=== PATIENT | female | born 1975 | race Caucasian/White ===

== ENCOUNTER 2017-01-23 05:35 | Inpatient (IN) | payer OTHER ==
--- NOTE | 2017-01-22 18:19 | GHP ---
[f rep st] PREOP HISTORY AND PHYSICAL Amended report PLANNED PROCEDURE: Total abdominal hysterectomy, possible supracervical hysterectomy with bilateral salpingectomy. INDICATIONS: Symptomatic fibroid uterus. The patient is a 41-year-old, 1, para 0-0-1-0, who has a longstanding history of known fibroid uterus. The patient has not really had any issues with that until recently. She has been in a new relationship, and is planning on getting . She did conceive her 1st in September of 2016. Unfortunately, that resulted in a miscarriage and she had a spontaneous . During that , her fibroid substantially increased in size, and never decreased following the miscarriage. She saw Dr. Sneed at [facility], to discuss myomectomies. He advised that the fibroids are so big that she would likely not have any uterus left after myomectomy, and would not be a candidate for . Since the miscarriage, the patient has had constant bleeding and significant pelvic pressure. Her uterus is up to her fundus, and observed obscures her entire pelvis. The patient is getting in 2 weeks, and normally travels extensively for work. Because she will have time after the wedding and her [place] honeymoon, and now, she is hoping to have this procedure done as soon as possible as she cannot travel internationally while recovering. We had an extensive discussion about the surgery, anticipation and expectations for recovery time, risks and benefits of surgery in general. Patient is electing to proceed with a total abdominal hysterectomy with bilateral salpingectomy. Risks and benefits have extensively been reviewed with the patient, and the patient has been properly consented. MEDICAL HISTORY: Significant for symptomatic fibroid uterus. A history of migraines. MEDICATIONS: Oral contraceptives. SURGICAL HISTORY: Back surgery. ALLERGIES: NO KNOWN DRUG ALLERGIES. SOCIAL HISTORY: Patient is engaged. She is going to get at the end of the month. She denies tobacco or drug use. She does drink socially. FAMILY MEDICAL HISTORY: Significant for her father with non-Hodgkin lymphoma and melanoma. Her mother also had skin cancer. POULTRY PROCESSOR HISTORY: Menarche age 13. Periods every 28 days, lasting 4 days. She is a 1, para 0-0-1-0. She had a spontaneous in November of 2016. The patient does have a remote history of abnormal Pap smears, but no procedures done on her cervix. She denies any history of any sexually transmitted diseases. PHYSICAL EXAMINATION: VITAL SIGNS: Stable. GENERAL APPEARANCE: She is alert and oriented x3. HEART: Rate is regular. LUNGS: Clear to auscultation bilaterally. ABDOMEN: Soft, but her uterus is up to her fundus. EXTREMITIES: Reveal no calf tenderness or edema. PELVIC: Reveals a non mobile uterus which extends up to her umbilicus and obliterates her pelvis. I am not able to appreciate any adnexal masses due to the size of her uterus. LABS: WBC 14.42 HCT 22.6 Platelets 677 IMAGING: An MRI was performed, which showed a uterus measuring 18.5 x 10.8 x 18.6 cm. She has innumerable fibroids; however, the dominant fibroids are an 8.8 cm intramural fibroid at the right uterine fundus, a 6.7 cm fibroid at the anterior portion of the fundus, a 4.4 cm subserosal fibroid in the left uterine body, a 1.3 cm submucosal fibroid in the uterine body. She does have a simple cyst on the left ovary versus hemorrhagic cyst versus endometrioma. ASSESSMENT AND PLAN: A 41-year-old, 1, para 0-0-1-0, with a symptomatic fibroid uterus. After extensive discussions about management options with the patient, despite not having any children, she is aware that it is unlikely that she will have a successful , so she wishes to proceed with a total abdominal hysterectomy with bilateral salpingectomy. Preoperative testing revealed significant anemia, elevated white blood cell count, and elevated platelets. Long discussion was had about delaying the surgery to increase her HCT. Patient is in significant discomfort and is agreeable to having a transfusion. Discussed with anesthesia and will have patient typed and crossed for 2 units before going back for surgery. The possibility of needing to perform a supracervical hysterectomy was discussed extensively with the patient. The patient has been properly consented, and we will proceed with surgery as planned. /[id number]/MODL Add acc#, 01/22/17, jerica ARGUELLO
[2017-01-23] MEDS ORDERED: ceFAZolin 2 GM/DEXTROSE 100 ML IV ONE (06:00)
[2017-01-23] MEDS ORDERED: LIDOCAINE 1% 2 ML INJ ONE (06:18)
[2017-01-23] MEDS ORDERED: BUPIVACAINE/EPI 0.5% 30 ML SDV ONE (06:45)
[2017-01-23] MEDS ORDERED: SURGIFLO MATRIX KIT WITH THROMBIN TP ONE (07:18)
[2017-01-23] MEDS ORDERED: LIDOCAINE 1% 5 ML SDV ID PRN (07:18)
[2017-01-23] MEDS ORDERED: LR 1,000 ML IV ONE (07:18)
[2017-01-23] MEDS ORDERED: morphINE PF 5 MG/10 ML INJ ONE (07:46)
[2017-01-23] MEDS ORDERED: PROPOFOL/EMULSION 500 MG/50 ML BOTTLE IV ONE (07:47)
[2017-01-23] MEDS ORDERED: ALBUMIN 5% 250 ML BOTTLE IV ONE (07:48)
[2017-01-23] MEDS ORDERED: fentaNYL 250 MCG/5 ML INJ ONE (07:48)
[2017-01-23] MEDS ORDERED: ROCURONIUM 50 MG/5 ML VIAL ONE (07:49)
[2017-01-23] MEDS ORDERED: LIDOCAINE 2% 5 ML SDV ONE (07:49)
[2017-01-23] MEDS ORDERED: ONDANSETRON 4 MG/2 ML VIAL ONE (07:49)
[2017-01-23] MEDS ORDERED: epHEDrine SULFATE 10 MG/ML SYR ONE (07:49)
[2017-01-23] MEDS ORDERED: DEXAMETHASONE 4 MG/ML VIAL ONE (07:49)
[2017-01-23] MEDS ORDERED: MIDAZOLAM 2 MG/2 ML VIAL ONE (07:50)
[2017-01-23] MEDS ORDERED: PHENYLEPHRINE HCL 100 MCG/ML SYR ONE (08:23)
[2017-01-23] MEDS ORDERED: SUGAMMADEX SODIUM 200 MG/2 ML VIAL IVP ONE (10:13)
--- NOTE | 2017-01-23 10:37 | POSTOPPROG ---
Post Op Note Date of Operation: 01/23/17 Surgeon: Felisa Sandoval Citizenship Teacher: mir vaca Anesthesiologist: victoria castorena Anesthesia: GET(General Endotracheal), Spinal Pre-op Diagnosis: symptomatic fibroid uterus Post-op Diagnosis: same Procedure: total abdominal hysterectomy with bilateral salpingectomy Inf/Abcess present in the surg proc area at time of surgery?: No EBL: 100-500 Specimen(s): uterus, cervix, bilateral fallopian tubes
[2017-01-23] MEDS ORDERED: PROMETHAZINE HCL 25 MG/ML INJ ONE (10:39)
[2017-01-23] MEDS ORDERED: KETOROLAC 30 MG/1 ML SDV IVP PRN (10:40)
[2017-01-23] MEDS ORDERED: ONDANSETRON 4 MG/2 ML VIAL IVP PRN (10:40)
[2017-01-23] MEDS ORDERED: HYDROmorphONE/DILAUDID 6 MG/30 ML PCA IV PRN (10:44)
[2017-01-23] MEDS ORDERED: NALOXONE HCL 0.4 MG/ML INJ IVP PRN (10:44)
[2017-01-23] MEDS ORDERED: LACTULOSE 20 GM/30 ML UDCUP PO PRN (10:45)
[2017-01-23] MEDS ORDERED: fentaNYL 100 MCG/2 ML INJ ONE (10:45)
[2017-01-23] MEDS ORDERED: MAGNESIUM HYDROXIDE 30 ML UDCUP PO PRN (10:45)
[2017-01-23] MEDS ORDERED: BISACODYL 10 MG SUPP PR PRN (10:45)
[2017-01-23] MEDS ORDERED: POLYETHYLENE GLYCOL 3350 17 GM PKT PO PRN (10:45)
[2017-01-23] MEDS ORDERED: KETOROLAC 30 MG/1 ML SDV ONE (11:15)
[2017-01-23 11:43] LABS: % IMMATURE GRANULYOCYTES 0.5 % (0.0-1.1); ADD DIFF? NO; ADD MORPH? NO; ADD SCAN? NO; ATYPICAL LYMPHOCYTE FLAG 10 (0-99); FRAGMENT RBC FLAG 0 (0-99); HEMATOCRIT 22.9 % (38.0-47.0); HEMOGLOBIN 7.1 g/dL (12.6-16.3); LEFT SHIFT FLG 20 (0-99); LIPEMIA HEMOLYSIS FLAG 80 (0-99); MEAN CELL HEMOGLOBIN 25.9 pg (27.9-34.1); MEAN CELL VOLUME 83.6 fL (81.5-99.8); PLATELET CLUMPS FLAG 10 (0-99); PLATELET COUNT 510 10^3/uL (150-400); RED BLOOD CELL COUNT 2.74 10^6/uL (4.18-5.33); RED CELL DISTRIBUTION WIDTH 15.7 % (11.5-15.2)
--- NOTE | 2017-01-23 14:24 | SOAPPROG ---
SOAP Progress Note Assessment/Plan: Assessment: pod# 0 s/p LUISA BS for symptomatic fibroids anemia s/p transfusion x 1 Plan: routine post operative care h and h in am 01/23/17 14:22 Subjective: patient is doing great. pain is well controlled now with atmospheric technician. no nausea since pacu. tolerating clears. hasnt ambulated yet. reviewed surgery and pictures. will increase activity. Objective: Vital Signs Temp Pulse Resp BP Pulse Ox 37.2 C 84 16 108/69 100 01/23/17 13:05 01/23/17 13:05 01/23/17 13:05 01/23/17 13:05 01/23/17 13:05 Laboratory Results 01/23/17 11:00 01/22/17 01/23/17 01/24/17 05:59 05:59 05:59 Intake Total 2800 Output Total 700 Balance 2100 Physical Exam - Physical Exam General Appearance: WD/WN, alert, no apparent distress Respiratory: chest non-tender, lungs clear, normal breath sounds Cardiac/Chest: normal peripheral pulses, regular rate, rhythm Abdomen: normal bowel sounds, non-tender, soft Skin: normal color, warm/dry, other (incision covered) Extremities: normal range of motion, non-tender, normal inspection, other (scd' s to bl le) Neuro/Psych: no motor/sensory deficits, alert, normal mood/affect, oriented x 3 ICD10 Worksheet Patient Problems: Problems Problem Status Onset Fibroid Acute
--- NOTE | 2017-01-23 15:31 | GOP ---
[f rep st] OPERATIVE REPORT DATE OF OPERATION: 01/23/2017 SURGEON: Felisa Sandoval DO MECHANICAL APPRENTICE: Nirali Nichole MD ANESTHESIA: Spinal with Duramorph and general anesthesia. ANESTHESIOLOGIST: Barney Jiménez MD PREOPERATIVE DIAGNOSIS: 1. Symptomatic fibroid uterus. 2. Anemia secondary to #1. POSTOPERATIVE DIAGNOSIS: 1. Symptomatic fibroid uterus. 2. Anemia secondary to #1. PROCEDURE PERFORMED: Total abdominal hysterectomy with bilateral salpingectomy. FINDINGS: 1. On exam under anesthesia, non mobile, enlarged fibroid uterus up to the umbilicus. 2. Operative findings: Enlarged fibroid uterus. Normal ovaries and tubes. SPECIMENS: Uterus, cervix and bilateral fallopian tubes. ESTIMATED BLOOD LOSS: 200 cc. INDICATIONS: The patient is a 41-year-old 1, para 0-0-1-0, who has a long-standing history of known fibroid uterus. The patient has not had any issues with that until recently. She conceived her first in September of 2016. Unfortunately, the resulted in a miscarriage, and she had a spontaneous . During that , the patient's fibroids substantially increased in size and never decreased following the miscarriage. She had hoped to preserve fertility, but had a consultation with [facility], and was told that myomectomies would result in not having enough uterus to maintain a , so the patient has decided to proceed with a total abdominal hysterectomy because of persistent vaginal bleeding and pelvic discomfort and pressure. Risks and benefits extensively have been reviewed with the patient. The patient was noted to be significantly anemic preoperatively, so she was transfused 1 unit of packed red blood cells. We had a long discussion about delaying the surgery versus proceeding, and the patient wished to proceed. The patient was properly consented. DESCRIPTION OF PROCEDURE: The patient was taken to the operating room with intravenous fluids in place. She was given 2 g of Ancef. She was then seated on the operating room table, where spinal anesthesia was obtained. She was then repositioned into the dorsal supine position. A Mahajan was placed, and she was then prepped and draped in the normal sterile fashion. The patient's fundus was noted to be up to the umbilicus and very wide laterally. Because of the positioning of the fibroid, we decided to attempt a Pfannenstiel skin incision. A Pfannenstiel skin incision was then made 2 fingerbreadths above the pubic symphysis. The incision was then carried through to the underlying layer of fascia with the Bovie. The fascia was then nicked in the midline, and the fascial incision was extended laterally. The superior aspect of the fascial incision was then grasped with the Kochers, tented up, and the underlying rectus muscle dissected off bluntly with the Bovie. Attention was then turned to the inferior aspect of the fascial incision, which in a similar fashion, was grasped with the Kochers, tented up, and the underlying rectus muscle dissected off bluntly and with the Bovie. The rectus muscle was then in the midline. The peritoneum was then identified, tented up, and entered sharply with the Metzenbaum scissors. The incision was extended superiorly and inferiorly with excellent visualization of the bladder. The uterus was noted to be quite large. We attempted to deliver the uterus through the incision, but were not able to do that, so the rectus muscle was then transected on the patient's right side. The uterus was then delivered through the incision. The right ovary and fallopian tube were identified and found to be unremarkable. The left ovary and fallopian tube were found to be unremarkable. Multiple fibroids were noted on the uterus. The LigaSure device was then used to clamp, cauterize, and transect the utero-ovarian ligament on the right side. The right round ligament was then clamped, cauterized, and transected. The broad ligament was then clamped, cauterized, and transected. The fallopian tube was then dissected from the mesosalpinx with the LigaSure, and clamped, cauterized, transected, and the specimen was handed off. The bladder flap was created anteriorly with Metzenbaum scissors, and the uterine arteries were then clamped, cauterized, and transected. Attention was then turned to the patient's left side, where the utero-ovarian ligament was then clamped, cauterized, and transected. The salpingectomy was performed without difficulty with the LigaSure. The round ligament was clamped, cauterized, and transected, as well as the broad ligament. The uterine arteries were then clamped, cauterized, and transected with the LigaSure. The bladder was pushed away remote from the operative site. The cervix was palpated. The straight Joe clamp was then used to clamp the cardinal ligaments, and they were then cut and suture ligated. The uterosacral ligaments were then clamped, transected , and suture ligated, and curved Joe clamps were then used to clamp underneath the cervix across the apex of the vagina. This was done bilaterally. Day scissors were then used to cut across the apex of the vagina, and the specimen was handed off the table. 0 Vicryl stitches were used in a [id number] fashion to transfix the uterosacral ligament to the angles of the vaginal cuff, and then interrupted [id number] stitches were used to close the vaginal cuff with 0 Vicryl suture. The pelvis was irrigated and found to be hemostatic. The pedicles were evaluated and found to be hemostatic. The ovaries were unremarkable. The appendix was visualized and found to be unremarkable. We attempted to identify the ureters bilaterally, however, we were not able to do so due to the bowel and the nature of the patient's pelvis. During the surgery, it was also noted that her sacrum was very prominent anteriorly within the pelvis. The vaginal cuff was again evaluated and found to be hemostatic. Peritoneum was then grasped with hemostats and closed with 3-0 Vicryl in a running fashion. The rectus muscle that had been transected was too far apart to reapproximate in a reasonable fashion, so the lower portion of the rectus muscle was reapproximated to the left rectus muscle as well as the higher portion of the rectus muscle reapproximated to the contralateral side, and we were not able to reattach the body of the rectus muscle. The fascia was then closed with 0 Vicryl in a running fashion. Subcutaneous tissue was irrigated and found to be hemostatic. Misbah fascia was reapproximated with 2-0 Vicryl in a running fashion. Subcutaneous tissue was reapproximated with 2-0 Vicryl in a running fashion. The skin was then closed with farzana. Sponge, lap, and needle counts were correct x2. The patient was transported to the recovery room in stable condition /[id number]/MODL MTDD
[2017-01-23] MEDS: KETOROLAC 30 MG/1 ML SDV IVP SCH (18:19)
[2017-01-23] MEDS: HYDROCODONE/APAP 5/325 TAB PO PRN ×2 (19:40→20:33)
[2017-01-23] MEDS: SENNOSIDES/DOCUSATE SODIUM TAB PO SCH (20:33)
[2017-01-24] MEDS: KETOROLAC 30 MG/1 ML SDV IVP SCH ×4 (00:07→18:51)
[2017-01-24] MEDS: HYDROCODONE/APAP 5/325 TAB PO PRN ×6 (00:08→19:27)
[2017-01-24 06:41] LABS: HEMATOCRIT 22.3 % (38.0-47.0); LIPEMIA HEMOLYSIS FLAG 80 (0-99); MEAN CELL HEMOGLOBIN CONCENTR. 30.9 g/dL (32.4-36.7); MEAN CELL VOLUME 84.2 fL (81.5-99.8); PLATELET COUNT 537 10^3/uL (150-400); RED BLOOD CELL COUNT 2.65 10^6/uL (4.18-5.33); RED CELL DISTRIBUTION WIDTH 15.8 % (11.5-15.2)
[2017-01-24 06:46] LABS: HEMOGLOBIN 6.9 g/dL (12.6-16.3)
[2017-01-24] MEDS: IRON POLYSAC/IRON HEME 28 MG TAB PO SCH ×2 (09:18→19:28)
[2017-01-24] MEDS: SENNOSIDES/DOCUSATE SODIUM TAB PO SCH ×2 (09:19→19:27)
[2017-01-24] MEDS ORDERED: ONDANSETRON DISINTEGRATING 4 MG TAB PO PRN (12:54)
--- NOTE | 2017-01-24 12:54 | SOAPPROG ---
SOAP Progress Note Assessment/Plan: Assessment: pod# 1 s/p LUISA BS for symptomatic fibroids anemia s/p transfusion x 1 Plan: routine post operative care iron 01/24/17 12:52 Subjective: patient is doing great! occasionally having pain management issues but overall well controlled. no vaginal bleeding. passing gas. tolerating diet. voiding without difficulty. ambulating in the halls. Objective: Vital Signs Temp Pulse Resp BP Pulse Ox 36.8 C 82 16 105/70 98 01/24/17 12:00 01/24/17 12:00 01/24/17 12:00 01/24/17 12:00 01/24/17 12:00 Laboratory Results 01/24/17 06:10 01/23/17 01/24/17 01/25/17 05:59 05:59 05:59 Intake Total 5180 Output Total 2950 120 Balance 2230 -120 Physical Exam - Physical Exam General Appearance: WD/WN, alert, no apparent distress Respiratory: chest non-tender, lungs clear, normal breath sounds Cardiac/Chest: normal peripheral pulses, regular rate, rhythm Abdomen: normal bowel sounds, non-tender, soft Skin: normal color, warm/dry, other (incision covered) Extremities: normal range of motion, non-tender, normal inspection, normal capillary refill Neuro/Psych: no motor/sensory deficits, alert, normal mood/affect, oriented x 3 ICD10 Worksheet Patient Problems: Problems Problem Status Onset Fibroid Acute
[2017-01-24] MEDS: IBUPROFEN 600 MG TAB PO SCH ×3 (15:41→18:26)
[2017-01-25] MEDS: HYDROCODONE/APAP 5/325 TAB PO PRN ×3 (00:25→09:54)
[2017-01-25] MEDS: IBUPROFEN 600 MG TAB PO SCH ×3 (00:25→12:56)
[2017-01-25 01:22] VITALS: RESP 16
--- NOTE | 2017-01-25 09:03 | SOAPPROG ---
SOAP Progress Note Assessment/Plan: Assessment: pod# 2 s/p LUISA BS for symptomatic fibroids anemia s/p transfusion x 1 Plan: routine post operative care iron discharge instructions staple removal 01/25/17 09:00 Subjective: patient is doing great! pain is well controlled. scant vaginal bleeding. tolerating iron. passing gas. had two bowel movements. voiding without difficulty. ambulating. Objective: Vital Signs Temp Pulse Resp BP Pulse Ox 36.8 C 94 16 117/79 96 01/25/17 00:30 01/25/17 00:30 01/25/17 00:30 01/25/17 00:30 01/25/17 00:30 Laboratory Results 01/24/17 06:10 01/24/17 01/25/17 01/26/17 05:59 05:59 05:59 Intake Total 5180 2340 Output Total 2950 720 Balance 2230 1620 Physical Exam - Physical Exam General Appearance: WD/WN, alert, no apparent distress Respiratory: chest non-tender, lungs clear, normal breath sounds Cardiac/Chest: normal peripheral pulses, regular rate, rhythm Abdomen: normal bowel sounds, non-tender, soft Skin: normal color, warm/dry, other Extremities: normal range of motion, non-tender, normal inspection, normal capillary refill Neuro/Psych: no motor/sensory deficits, alert, normal mood/affect, oriented x 3 ICD10 Worksheet Patient Problems: Problems Problem Status Onset Fibroid Acute
[2017-01-25 09:18] VITALS: BP 113/77; PULSE 95; TEMP 98.4; O2SAT 93
[2017-01-25] MEDS: SENNOSIDES/DOCUSATE SODIUM TAB PO SCH (09:28)
[2017-01-25] MEDS: IRON POLYSAC/IRON HEME 28 MG TAB PO SCH (09:28)
== END 2017-01-25 15:30 | disposition home or self-care (01) | DRG 743 ==
LOC: F3E 05:35 → FOB 13:03 → FNSY 13:03
PROVIDERS: ADMIT Obstetrics & Gynecology; ATTEND Obstetrics & Gynecology
PROC: 0UT90ZZ Resection of Uterus, Open Approach (ICD-10-PCS; principal; 2017-01-23 07:15)
PROC: 30233N1 Transfusion of Nonautologous Red Blood Cells into Peripheral Vein, Percutaneous Approach (ICD-10-PCS; principal; 2017-01-23 07:15)
PROC: 0UT70ZZ Resection of Bilateral Fallopian Tubes, Open Approach (ICD-10-PCS; principal; 2017-01-23 07:15)
DX: D25.0 Submucous leiomyoma of uterus (principal); D25.1 Intramural leiomyoma of uterus; D25.2 Subserosal leiomyoma of uterus; D64.9 Anemia, unspecified
CPT/HCPCS: J0690; J1100; J1170; J1885; J2250; J2274; J2370; J2405; J2550; J2704; J3010; P9016; P9041

== ENCOUNTER → 2018-01-06 | Outpatient (CLI) | payer OTHER | LOC: FIMAGING 14:52 | PROVIDERS: ATTEND Obstetrics & Gynecology | DX: Z12.31 Encounter for screening mammogram for malignant neoplasm of breast (principal) ==

== ENCOUNTER → 2018-01-28 | Outpatient (CLI) | payer OTHER ==
[~2018-01-28] MED LIST: GADOBUTROL 10 ML VIAL IVP ONE
== END ==
LOC: FIMAGING 07:07
PROVIDERS: ATTEND Obstetrics & Gynecology Reproductive Endocrinology
DX: E23.7 Disorder of pituitary gland, unspecified (principal); R90.82 White matter disease, unspecified
CPT/HCPCS: A9585